=== PATIENT | female | born 1930 | race Caucasian/White ===

== ENCOUNTER → 2017-03-06 | Outpatient (CLI) | payer MEDICARE ==
[~2017-03-06] MED LIST: REGADENOSON 0.4 MG/5 ML DISP.SYRIN. IV ONE
--- NOTE | 2017-03-06 15:14 | PCVCIMAG ---
APPROVED REPORT Exam: Nuclear Stress Test Indication: Chest pain, Atrial Fibrillation Patient Location: Out-Patient Stress Nurse: Hattie Figueroa RN, Kaur Camacho RN CT Tech:Rhianna Adam [facility] Ht: 5 ft 2 in Wt: 154 lbs BSA: 1.71 m2 HR: 66 bpm BP: 199/88 mmHg BMI: 28.1 Rhythm: SR W/AFIB Medical History Medical History: HTN, Atrial Fibrillation, Age Medications: Amiodarone, ASA, Losartan, Hydralazine, Metoprolol Allergies: Morphine Pretest Chest Pain Characteristics: No chest pain Exercise History: Sedentary Physical Disabilities: Uses a walker Meds Held (24 hrs): Metoprolol Stress Test Details Stress Test: Pharmacologic stress testing performed using 0.4 mg of regadenoson per 5 mL given IV over 10 seconds. Reason for pharmacologic stress test: physical limitation. HR Resting HR: 66 bpmMax Heart Rate (APMHR): 134 bpm Max HR Achieved: 90 bpmTarget HR (85% APMHR): 113 bpm % of APMHR: 67 Recovery HR: 81 bpm BP Resting BP: 199/88 mmHg Max BP: 138/64 mmHg ECG Resting ECG: Sinus Rhythm, Fasicular Block Stress ECG: Sinus Rhythm ST Change: Non-ischemic Recovery ECG: Sinus Rhythm Clinical Reason for Termination: Completed protocol Stress Symptoms: None Exercise duration: 0 min 55 sec Symptoms resolved during recovery. NM EXAM: Myocardial Perfusion REST/STRESS Imaging Protocol: Rest Tc-99m/Stress Tc-99m 1 day Resting Data Rest SPECT myocardial perfusion imaging was performed in supine position 45 minutes following the intravenous injection of 10.4 mCi of Tc-99m Sestamibi. Time of rest injection: 854 Date: 03/06/2017 Administration Route: IV Administration Site: Right Arm Pharmacologic Stress Pharmacologic stress test was performed by injecting Regadenoson 0.4 mg IV push followed by the intravenous injection of 32.8 mCi of Tc-99m Sestamibi. Time of stress injection: 1025 Date: 03/06/2017 Administration Route: IV Administration Site: Right Arm Gated Stress SPECT was performed 45 minutes after stress injection. The images were gated to evaluate regional wall motion and calculate left ventricular ejection fraction. Study Quality Study: Good Artifact: Mild Breast artifact Study Data Post stress, the left ventricular ejection was 84%.. SSS: 0 SRS: 3 SDS: 0 TID = 0.88. Perfusion There is a small area of mildly reduced uptake in the apical segment of the anterior wall which is seen on the stress images as well as the resting images. This area thickens and moves normally and is most consistent with attenuation artifact. Wall Motion Normal left ventricular wall motion. Nuclear Conclusion ECG Findings: non-ischemic Clinical Findings: non-diagnostic Nuclear Findings: negative for ischemia This study is of low probability for inducible ischemia or prior infarct. Normal global and segmental LV systolic function. Artifact: Mild Breast artifact
== END | disposition home or self-care (01) ==
LOC: PCVCIMAG 08:35
PROVIDERS: ATTEND Internal Medicine Cardiovascular Disease
DX: I48.91 Unspecified atrial fibrillation (principal); R07.9 Chest pain, unspecified
CPT/HCPCS: 78452; 93017; A9500; J2785